=== PATIENT | male | born 1975 | race Native Hawaiian/Other Pacific Islander ===

== ENCOUNTER 2018-05-09 18:59 | Emergency (ER) | payer OTHER ==
[~2018-05-09] VITALS: Ht 180.3 cm; Wt 81.6 kg
[2018-05-09 19:32] LABS: PLATELET COUNT 310 K/uL (142-355)
[2018-05-09 19:41] LABS: POTASSIUM 4.3 mmol/L (3.6-5.2)
[2018-05-09 20:56] VITALS: BP 130/70; TEMP 98.2
== END 2018-05-09 20:56 | disposition home or self-care (01) ==
LOC: ED 18:59
DX: M54.5 Low back pain (principal); M47.897 Other spondylosis, lumbosacral region; M12.88 Other specific arthropathies, not elsewhere classified, other specified site
CPT/HCPCS: 80053; 81000; 85027; 96372; 99283; J1885